=== PATIENT | male | born 1955 | race Caucasian/White ===

== ENCOUNTER 2023-06-25 15:30 | Outpatient (RCR) | payer MEDICARE, OTHER, SELFPAY | END 2023-06-25 23:59 | disposition home or self-care (01) | LOC: CRHB 15:30 | PROVIDERS: ATTENDING PHYSICIAN Internal Medicine Cardiovascular Disease | DX: I25.10 Atherosclerotic heart disease of native coronary artery without angina pectoris (principal); Z95.1 Presence of aortocoronary bypass graft | CPT/HCPCS: G0422; G0423 ==

== ENCOUNTER → 2023-08-28 12:57 | Outpatient (REF) | payer MEDICARE, OTHER, SELFPAY ==
[2023-08-28 14:34] LABS: Microalbumin/creatinine Ratio 98.1 mg/g
[2023-08-28 15:08] LABS: ALT (SGPT) 20 U/L (0-50); AST (SGOT) 20 U/L (17-59); Albumin 4.1 g/dl (3.5-5.0); Alkaline Phosphatase 81 U/L (38-126); Blood Urea Nitrogen 13 mg/dl (9-20); Calcium 9.4 mg/dl (8.4-10.2); Carbon Dioxide 26 mmol/L (22-30); Chloride 102 mmol/L (98-107); Glucose 134 mg/dl (70-99); HDL Cholesterol 47 mg/dl; LDL Cholesterol, Calculated 76 mg/dl; Potassium 4.7 mmol/L (3.5-5.1); Sodium 138 mmol/L (135-145); Total Bilirubin 0.8 mg/dl (0.2-1.3); Total Cholesterol 145 mg/dl (50-199); Total Protein 6.6 g/dl (6.3-8.2); Triglyceride 111 mg/dl (10-149); Very Low Density Lipoprotein 22 mg/dl (0-30); eGFR > 60.00
[2023-08-29 09:25] LABS: Glycohemoglobin (HgbA1c) 7.7 % (4.0-5.6)
== END ==
LOC: REG 12:57
PROVIDERS: ATTENDING PHYSICIAN Internal Medicine
DX: E11.51 Type 2 diabetes mellitus with diabetic peripheral angiopathy without gangrene (principal); E78.2 Mixed hyperlipidemia
CPT/HCPCS: 36415; 80053; 80061; 82043; 82570; 83036

== ENCOUNTER → 2023-10-10 10:05 | Outpatient (REF) | payer MEDICARE, OTHER, SELFPAY | LOC: HWRAD 10:05 | PROVIDERS: ATTENDING PHYSICIAN Nurse Practitioner Family | DX: J06.9 Acute upper respiratory infection, unspecified (principal); R05.1 Acute cough | CPT/HCPCS: 71046 ==

== ENCOUNTER → 2024-08-06 08:47 | Outpatient (REF) | payer MEDICARE, OTHER, SELFPAY ==
[2024-08-06 10:16] LABS: Glycohemoglobin (HgbA1c) 7.1 % (4.0-5.6)
[2024-08-06 11:15] LABS: ALT (SGPT) 24 U/L (0-50); AST (SGOT) 23 U/L (17-59); Albumin 5.1 g/dl (3.5-5.0); Alkaline Phosphatase 82 U/L (38-126); Blood Urea Nitrogen 26 mg/dl (9-20); Calcium 9.6 mg/dl (8.4-10.2); Carbon Dioxide 26 mmol/L (22-30); Chloride 102 mmol/L (98-107); Glucose 124 mg/dl (70-99); HDL Cholesterol 53 mg/dl; LDL Cholesterol, Calculated 53 mg/dl; Potassium 4.9 mmol/L (3.5-5.1); Sodium 139 mmol/L (135-145); Total Bilirubin 1.1 mg/dl (0.2-1.3); Total Cholesterol 127 mg/dl (50-199); Total Protein 7.3 g/dl (6.3-8.2); Triglyceride 107 mg/dl (10-149); Very Low Density Lipoprotein 21 mg/dl (0-30); eGFR > 60.00
[2024-08-06 11:19] LABS: NT-proBNP 380 pg/ml
[2024-08-06 11:43] LABS: PSA, Total - Screen 0.25 ng/ml (0.0-4.0)
[2024-08-06 14:52] LABS: Microalbumin, Random Urine 52.5 mg/dl (0.6-1.7); Microalbumin/creatinine Ratio 240.9 mg/g
== END ==
LOC: REG 08:47
PROVIDERS: ATTENDING PHYSICIAN Internal Medicine Cardiovascular Disease; FAMILY PHYSICIAN Internal Medicine
DX: I25.10 Atherosclerotic heart disease of native coronary artery without angina pectoris (principal); R06.09 Other forms of dyspnea; E78.2 Mixed hyperlipidemia; E11.51 Type 2 diabetes mellitus with diabetic peripheral angiopathy without gangrene; I10 Essential (primary) hypertension; Z12.5 Encounter for screening for malignant neoplasm of prostate
CPT/HCPCS: 36415; 80053; 80061; 82043; 82570; 83036; 83880; G0103

== ENCOUNTER → 2024-08-08 12:17 | Outpatient (REF) | payer MEDICARE, OTHER, SELFPAY | LOC: RCS 12:17 | PROVIDERS: ATTENDING PHYSICIAN Internal Medicine Cardiovascular Disease; FAMILY PHYSICIAN Internal Medicine | DX: I25.10 Atherosclerotic heart disease of native coronary artery without angina pectoris (principal); I11.9 Hypertensive heart disease without heart failure; R06.09 Other forms of dyspnea | CPT/HCPCS: 93306 ==

== ENCOUNTER → 2024-08-27 09:56 | Outpatient (REF) | payer MEDICARE, OTHER, SELFPAY ==
[2024-08-27 13:11] LABS: D-Dimer 0.33 ug/mlFEU (0.00-0.50)
[2024-08-27 13:17] LABS: NT-proBNP 486 pg/ml
== END ==
LOC: HWLAB 09:56
PROVIDERS: ATTENDING PHYSICIAN Internal Medicine Cardiovascular Disease; FAMILY PHYSICIAN Internal Medicine
DX: I10 Essential (primary) hypertension (principal)
CPT/HCPCS: 36415; 83880; 85379

== ENCOUNTER → 2024-09-10 13:39 | Outpatient (REF) | payer MEDICARE, OTHER, SELFPAY | LOC: RCS 13:39 | PROVIDERS: ATTENDING PHYSICIAN Internal Medicine Cardiovascular Disease; FAMILY PHYSICIAN Internal Medicine | DX: Z95.1 Presence of aortocoronary bypass graft (principal); I25.10 Atherosclerotic heart disease of native coronary artery without angina pectoris; Z95.5 Presence of coronary angioplasty implant and graft; I21.29 ST elevation (STEMI) myocardial infarction involving other sites | CPT/HCPCS: 93306; Q9950 ==

== ENCOUNTER → 2025-03-27 13:33 | Outpatient (REF) | payer MEDICARE, OTHER, SELFPAY ==
[2025-03-27 15:23] LABS: ALT (SGPT) 22 U/L (0-50); AST (SGOT) 18 U/L (17-59); Albumin 4.3 g/dl (3.5-5.0); Alkaline Phosphatase 77 U/L (38-126); Blood Urea Nitrogen 18 mg/dl (9-20); Calcium 9.2 mg/dl (8.4-10.2); Carbon Dioxide 25 mmol/L (22-30); Chloride 108 mmol/L (98-107); Glucose 149 mg/dl (70-99); HDL Cholesterol 45 mg/dl; LDL Cholesterol, Calculated 60 mg/dl; Potassium 5.0 mmol/L (3.5-5.1); Sodium 137 mmol/L (135-145); Total Protein 6.7 g/dl (6.3-8.2); Very Low Density Lipoprotein 16 mg/dl (0-30); eGFR > 60.00
[2025-03-27 15:44] LABS: Microalb - Urine Creatinine 276.800 mg/dl
[2025-03-27 16:11] LABS: Microalbumin, Random Urine > 57.0 mg/dl (0.6-1.7)
[2025-03-28 08:54] LABS: Glycohemoglobin (HgbA1c) 7.2 % (4.0-5.6)
== END ==
LOC: HWLAB 13:33
PROVIDERS: ATTENDING PHYSICIAN Internal Medicine
DX: E78.2 Mixed hyperlipidemia (principal); E11.51 Type 2 diabetes mellitus with diabetic peripheral angiopathy without gangrene
CPT/HCPCS: 36415; 80053; 80061; 82043; 82570; 83036

== ENCOUNTER 2025-04-25 16:09 | Day surgery (SDC) | payer MEDICARE, OTHER, SELFPAY ==
[2025-04-25] VITALS (13 sets, daily range): BP systolic 108–170; BP diastolic 63–82; BMI 29.7; BMI 29.2
--- NOTE | 2025-04-25 12:31 | ED.GENMED ---
History of Present Illness
General
Chief Complaint: Breathing Problem
Source: patient
Time Seen by Provider: 04/25/25 12:22
History of Present Illness
History of Present Illness:
69-year-old male presents emergency department with reported dyspnea that started last night. He wondered whether or not it was related to fluid accumulation so he took a dose of Lasix. He reports urinating often throughout the night. Patient
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 While doing this at approximately 9:30 AM he started to feel diaphoretic associated with bilateral 'shoulder blade' pain. He took nitroglycerin x 1 with gradual relief of symptoms.
Then, at around 10:30 AM, the 'sharp stabbing' scapular pain returned associated with a feeling of having a hard time breathing. He took nitroglycerin x 1, and states that he has 'residual' discomfort and continued dyspnea. He denies chest pain,
neck pain, headache, abdominal pain, nausea, vomiting, or other complaints. He states that he has had scapular pain in the past consistent with an angina equivalent.
Past History
Past History
ED Past Medical History: CAD, HTN, Hypercholesterolemia, [place] and Other (L 6mm kidney stone w/ sx intevention and stetning/turp, BPH)
ED Past Surgical History: Cardiac and Urological
Social History
Tobacco: Former smoker
Alcohol: None
Drug: None
Personal:
Living: with family
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
Family History
Family History: Other (n/c)
Phy Exam
Physical Exam
Physical Exam:
GENERAL: Alert , in no apparent distress
EYE: pupils equal and reactive
NECK: Supple, no significant adenopathy.
ENT: o/p clr, mmm.
CARDIAC: Regular rate and rhythm .
LUNGS: Clear breath sounds bilaterally, no acute respiratory distress, no wheezes/rales/rhonchi
ABDOMEN: Soft, without focal tenderness, no r/g, no cvat
NEUROLOGICAL: Alert and oriented, no focal neuro deficits
SKIN: Warm and dry, skin intact.
MUSCULOSKELETAL: No edema, well perfused.
PSYCH: Normal and appropriate interaction.
Scores
Heart Failure Risk
Heart Failure Risk Score: Not Applicable
Course
Orders/Labs/Results
Orders:
Orders
04/25/25 11:57
EKG [Electrocardiogram (*1)] Urgent
Reason for Study: Tachycardia
EKG- Treatment ONCE
04/25/25 12:30
Pulse Ox/cont/shift [RESP] Stat
Quantity: 1
04/25/25 12:31
Cardiac Monitoring- Treatment ONCE
Aspirin 325 mg PO NOW STA
Nitroglycerin Sublingual [Nitrostat (Sublingual)] 0.4 mg SL [id number] PRN
CR Chest - 2 Views Urgent
Comment:
Reason For Exam: sob, scapular pain
04/25/25 12:33
Complete Blood Count/No Diff Urgent
Comprehensive Metabolic Panel Urgent
NT-proBNP Urgent
Troponin I Urgent
04/25/25 13:52
Add On- LAB Urgent
Tests Added?: d-dimer
04/25/25 14:11
D-Dimer Routine
04/25/25 14:12
EKG [Electrocardiogram (*1)] Urgent
Reason for Study: Chest Pain
EKG- Treatment ONCE
04/25/25 14:23
Furosemide [Lasix] 40 mg IV NOW STA
04/25/25 Dinner
1800 calorie (15 carb) Diabetic
At Your Request: Full Participation
04/25/25 15:37
CARDIOLOGY CONSULT Routine
Consulting Provider: Alfredo Chance
Was physician already notified: Yes
Reason for consult: chest pain
04/25/25 15:38
Admit/Transfer Patient As Directed
Co-Sign Provider:
Level of Care: Observation services
Assign to:: Telemetry
Physician / Group: josh locke
Diagnosis: cp cpncern acs vs chf
Reason for Telemetry: Chest Pain syndromes
Date to Stop Telemetry: 04/27/25
Time to Stop Telemetry: 11:00
Code Status As Directed
Resuscitation Status: Full Code
04/25/25 15:41
PRN Pain Medication Management As Directed
May give lesser potent ordered pain med per pt: Yes
preference::
Protocol:: Medication orders for pain may be administered in a
manner that supports deferring to patient preference
when the pt is:
- Requesting an ordered lesser potent pain medication.
Least to most potent pain medications are defined
as: acetaminophen < NSAID < tramadol < opioids
(morphine, oxycodone, hydromorphone).
- Requesting a lesser dose of the same medication IF
ORDERED.
- Requesting a less intrusive route of administration
if both routes are prescribed by the provider (PO <
IV).
04/25/25 16:11
Troponin I Urgent
04/25/25 16:51
Acetaminophen [Tylenol] 650 mg PO Q4HPRN PRN
Dextrose 50%-Water [Dextrose 50% Syringe] 12.5 grams IV [id number] PRN
Glucagon [GlucaGen] 1 mg IM PRN PRN
Insulin Aspart Corrective Low [Novolog Flexpen-Low Resistance] See Protocol SC AC
Nitroglycerin Sublingual [Nitrostat (Sublingual)] 0.4 mg SL [id number] PRN
04/25/25 16:51
Activity As Directed
Activity Level: As Tolerated
Bedside Glucose Monitoring As Directed
Frequency: AC&HS
Additional Instructions:: Change to q6h if pt on TPN, tube feeding or not eating
Intake/ Output As Directed
Frequency: Per unit guidelines
Vital Signs As Directed
Frequency: Per unit guidelines
Weight As Directed
Frequency: Daily
Pt Eval And Treat Routine
Activity Level: As Tolerated
DX Deep Vein Thrombosis Video Routine
04/25/25 20:00
EKG [Electrocardiogram (*1)] Urgent
Reason for Study: Chest Pain
Carvedilol [Coreg] 3.125 mg PO BID
Heparin 5,000 units SC Q12
04/25/25 22:05
Troponin I Urgent
04/26/25 08:00
Amlodipine [Norvasc] 5 mg PO DAILY
Aspirin Chewable [Low Strength Aspirin] 81 mg PO DAILY
Atorvastatin [Lipitor] 40 mg PO Daily
Clopidogrel Bisulfate [Plavix] 75 mg PO DAILY
Escitalopram Oxalate [Lexapro] 10 mg PO DAILY
Ezetimibe [Zetia] 10 mg PO DAILY
Glimepiride [Amaryl] 3 mg PO DAILY
Tamsulosin [Flomax] 0.4 mg PO DAILY
04/26/25 08:12
Cardiovascular Evaluation IN AM
Complete Blood Count/With Diff IN AM
Comprehensive Metabolic Panel IN AM
04/27/25 04:59
Complete Blood Count/With Diff IN AM
04/27/25 11:00
DC Protocol for Telemetry ONCE
Abnormal Lab Results
04/25/25 04/25/25
12:33 14:11
RBC 4.34 L 10^6/uL
(4.70-6.10)
MCH 31.1 H pg
(27.0-31.0)
MPV 10.7 H fL
(7.4-10.4)
D-Dimer 0.59 H ug/mlFEU
(0.00-0.50)
Potassium 5.6 H mmol/L
(3.5-5.1)
BUN 29 H mg/dl
(9-20)
Glucose 230 H mg/dl
(70-99)
04/25/25 12:33
04/25/25 12:33
Vital Signs
Initial and Last Documented VS:
Initial Vital Signs
Temp Pulse Resp BP Pulse Ox
97.6 F 87 20 135/66 99
04/25/25 12:01 04/25/25 12:01 04/25/25 12:01 04/25/25 12:01 04/25/25 12:01
Last Documented Vital Signs
Temp Pulse Resp BP Pulse Ox
98.1 F 74 18 124/56 95
04/27/25 06:59 04/27/25 08:55 04/27/25 06:59 04/27/25 08:55 04/27/25 06:59
*Pulse Oximetry
SaO2: 100
Oxygen Mode of Delivery: Room air
Patient hypoxic: no
*Critical Care Note
Total Time (30-74mins, 75-104mins- exclusive of procedures): Not Applicable
Update Note
Update Note:
Patient presents to the Emergency Department with scapular pain and dyspnea
Number and Complexity of Problems Addressed at the Encounter
� Chronic conditions affecting care:
� Acute Exacerbation and/or Progression of Chronic Illness:
� Differential Diagnosis includes: But not limited to ACS, STEMI, heart failure, muscular pain, etc. etc.
Amount and/or Complexity of Data to be Reviewed and Analyzed
� I performed an independent evaluation of and my interpretation is:
EKG: Read by me, normal sinus rhythm with PAC, no acute ischemia noted
CT:
Xrays:cxr nad
Laboratory Studies:troponin unremarkable, bnp sl elevated compared to normal, sl hyperK
Other:
� Review of other/old records reveals: January 2023 patient received CABG x 3
� Clinical information was obtained by an independent historian:
� Prescriptions/Medications Considered but not given:
� Further testing considered but not performed:
Risk of Complications and/or Morbidity or Mortality of Patient Management
� Social determinants of health affecting care:
� Discussion with other providers (PCP, Hospitalists, Consultants, etc):
� Escalation of care including admission/observation vs risk of discharge considered: Patient will be monitored closely, no acute ischemic changes noted on ECG, minimal scapular pain at this time, will be given aspirin and nitro
with close attention to vitals and symptoms. Pain is not 'ripping' or 'tearing' in quality, not abrupt in onset, not radiating through to the back making dissection far less likely.
1:09 PM status post nitro x 1 here, pain fully resolved. Pulse ox normal on room air, awaiting testing results.
222pm Pt had an episode of cp...ecg done at that time, unremkarable for acute ischemic changes. strongly doubt dissection, not hypertensive, etc. PE less likely, D dimer pending. Suspect mild heart failure, will rx lasix now, admit for obs,
continued cards eval. D/w hospitliast.
Age adjusted D dimer unremarkable
ED Attending Note
-
Portions of this chart may have been created with voice recognition software.� Occasional wrong word or��sound alike� substitutions may have occurred due to the inherent limitations of voice recognition software.
Discharge Plan
Departure
Patient Disposition: Admit
Date of Disposition: 04/25/25
Time of Disposition: 14:23
Admit to: Telemetry
Presentation/result/management discussed w/ accepting MD/DO: Hospitalist
Condition: Fair
Discharge Problem:
Dyspnea
Interventions
Interventions:
*General Assessment Last Done: 04/25/25 12:01
*Neglect/Abuse Screening Last Done: 04/25/25 12:01
*ED- Fall Risk Assessment Last Done: 04/25/25 12:01
*ED Influenza Vaccine History Last Done: 04/25/25 12:01
*Nursing Disposition Last Done: 04/25/25 16:23
ED- Cardiac Assessment Last Done: 04/25/25 12:28
ED- Pulmonary Assessment Last Done: 04/25/25 12:28
Discharge Date and Time
Discharge Date/Time: 04/25/25 16:46
[2025-04-25] MEDS: NITROSTAT (SUBLINGUAL) 0.4 MG SL (12:36)
[2025-04-25] MEDS: ASPIRIN 325 MG PO (12:36)
[2025-04-25 12:39] LABS: Hematocrit 39.4 % (39.0-52.0); Hemoglobin 13.5 g/dL (13.0-18.0); Mean Corp Hgb Conc. 34.3 g/dL (33.0-37.0); Mean Corpuscular Volume 90.8 fL (80.0-94.0); Platelet Count 244 10^3/uL (130-400); Red Cell Dist. Width 12.6 % (11.5-14.5)
[2025-04-25 12:55] LABS: ALT (SGPT) 24 U/L (0-50); AST (SGOT) 21 U/L (17-59); Albumin 4.5 g/dl (3.5-5.0); Alkaline Phosphatase 65 U/L (38-126); Blood Urea Nitrogen 29 mg/dl (9-20); Calcium 9.1 mg/dl (8.4-10.2); Carbon Dioxide 23 mmol/L (22-30); Chloride 101 mmol/L (98-107); Estimated Creatinine Clearance 61 ml/min; Glucose 230 mg/dl (70-99); Potassium 5.6 mmol/L (3.5-5.1); Sodium 136 mmol/L (135-145); Total Protein 6.8 g/dl (6.3-8.2); eGFR 59.47
--- NOTE | 2025-04-25 13:00 | EDRN ---
potassium elevated, Dr. Duran notified
[2025-04-25 13:06] LABS: Troponin I < 0.012 ng/ml
--- NOTE | 2025-04-25 14:12 | EDRN ---
the pts approached this RN at the nurses station and stated that he had left sided chest pain, this RN notified Dr. Duran and a second EKG was ordered
--- NOTE | 2025-04-25 14:22 | W.PN.UPDATE ---
Update Note
Progress Note Update
This note serves as an addendum to the H&P by casino cashier ZULMA�
Imani Nery
�This note serves as an addendum to the H&P by casino cashier ZULMA�Imani Gabriel
HPI
69M HX CAD( stents to Circ and LAD) on DAPL, 3V CABR ( 2022, 2018, 2008) LVEF 45-50 ( ) seen at ER:
- pw dyspnea that started last night- took a dose of Lasix presumed fluid retention
- reports urinating often throughout the night.
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
- associated with bilateral 'shoulder blade' pain- took NTG x 1 with gradual relief of symptoms.
- Then, around 10:30 AM, recurrence of 'sharp stabbing' scapular pain with SoB
- He took nitroglycerin x 1, and states that he has 'residual' discomfort and continued dyspnea.
- He states that he has had scapular pain in the past consistent with an angina equivalent.
ROS
He denies chest pain, neck pain, headache, abdominal pain, nausea, vomiting, or other complaints.
PHX: CAD, HTN, Hypercholesterolemia, [place] and Other (L 6mm kidney stone w/ sx intervention and stenting/turp, BPH)
Relevant VS
Temp Pulse Resp BP Pulse Ox
98.6 F 79 19 118/63 100
04/25/25 12:28 04/25/25 12:28 04/25/25 12:28 04/25/25 12:41 04/25/25 12:35
PE
Gen: NAD, Overweight with central obesity
HEENT: anicteric
Neck: supple
Lungs: CTA
Cor: RRR S1 S2
Abdomen:�centrl obesity , soft NT
[employer] NETWORK ARCHITECT: NFND
MS: no edema
Psych: Nl mood and affect
Relevant Data
03/27/25 04/25/25 04/25/25
13:42 12:33 14:11
WBC 7.6
Hgb 13.5
Plt Count 244
D-Dimer Pending
Potassium 5.6 H
BUN 29 H
Creatinine 0.9 1.3
eGFR > 60.00 59.47
Glucose 230 H
Troponin I < 0.012
Tkp-G-Reixuvvltjd Pept 1090
CXR; NAD
EKG @ 1157
SINUS RHYTHM WITH PREMATURE ATRIAL COMPLEXES WITH Aberrant conduction
LEFT AXIS DEVIATION
ABNORMAL ECG
WHEN COMPARED WITH ECG OF 31-Jan-2023 08:08,
SINUS RHYTHM HAS REPLACED ATRIAL FLUTTER
VENT. RATE HAS DECREASED by 51 bpm
NONSPECIFIC T WAVE ABNORMALITY NOW EVIDENT IN LATERAL LEADS
EKG @1412
SINUS RHYTHM WITH OCCASIONAL PREMATURE VENTRICULAR COMPLEXES
LEFT AXIS DEVIATION
NONSPECIFIC T WAVE ABNORMALITY
ABNORMAL ECG
WHEN COMPARED WITH ECG OF 25-Apr-2025 12:00,
PREMATURE VENTRICULAR COMPLEXES ARE NOW PRESENT
Aberrant conduction IS NO LONGER PRESENT
09/10/24 TTE
Normal left ventricular chamber size.
Mildly reduced left ventricular systolic function. LVEF 45-50%
Hypokinesis of the inferior wall.
Abnormal (paradoxical) septal motion consistent with postoperative status.
Normal right ventricular size and function.
Compared to prior study dated 08/08/2024 which was directly reviewed, there is
no significant change within limits of the study quality
ASSESSMENT & PLAN
Pending Rx reconciliation
Exertional scapular pain presumed angina equivalent relieved by 2 SL NTG - associated SoB
HX CAD s/p 3 mm Xience prox Circumflex 05/27/19
HX CAD s/p Xience ALEXANDRE to prox LAD and Vision BMS to RCA 12/28/08
HX [place]
Hyperlipidemia
- unremarkable EKG x2 for acute ischemia
- NEG CXR, POx 100 on RA
- Eval for ACS
- c/w GEOLOGICAL TECHNICIAN DAPL
- c/w GEOLOGICAL TECHNICIAN Atorvastatin and Ezetimibe
- NEG TPNI. NOS T wave abnormality
- Trend TPNI
- [facility] card consult
VIKKI - Cardiorenal syndrome vs volume contraction ( He did not take Frusemide for 4- 5days before yesteray )
Associated hyperkalemia
- Frusemide - patient took 40 mg PO last night and received IV lasixc 40 at ER
- Hold further Lasix
- Hold GEOLOGICAL TECHNICIAN KCL 20 daily
- Hold Metformin
- FU BMP around 10 pm
Essential HTN
Known HX fatigue with BID Carvedilol
- c/w GEOLOGICAL TECHNICIAN Carvedilol daily
DMT2
- Hold Metformin due to VIKKI
- c/w Glimepiride
- add ISS low
HX LLEx DVT
HX hematuria
HX urinary retention.
HX Pyuria/urinary tract infection
HX Status post left ureteral stone manipulation/JJ stent/removed 09/13, status post TURP.
PTSD
DVT Px: SCD
Full code
OBS TLM
[2025-04-25 14:29] LABS: D-Dimer 0.59 ug/mlFEU (0.00-0.50)
--- NOTE | 2025-04-25 14:38 | HPS.HSE ---
Family Physician
-
Family Physician: Andi Nolan
Chief Complaint
-
Dyspnea, bilateral shoulder blade pain
History of Present Illness
69-year-old male complaining of dyspnea with abdominal bloating that started last night he was concerned about fluid overload so took his Lasix 40 mg and was urinating throughout the night. He reports he had stopped it over the past 2 weeks due to
going to work and watching his grandkids and did not want to have to keep going to the bathroom. He reports today at 9:30 AM he was unloading trucks and pallets at work started to feel diaphoretic with bilateral shoulder blade pain he took
nitroglycerin with gradual relief of symptoms however they returned approximately 1 hour later with shortness of breath he took additional nitroglycerin sublingual but had residual discomfort and dyspnea. He states he typically gets posterior
shoulder blade pain with prior history of MIs. He did develop 1 episode of chest pain in the ER was given nitro and aspirin along with IV Lasix. He currently is chest pain-free the patient denies fever, chills, headache, sore throat, palpitations,
abdominal pain, nausea, vomiting, diarrhea, urinary symptoms.
Patient's past medical history of CAD/CABG x 5 vessel, ischemic cardiomyopathy 45 to 50% 02/04/2023, postop A-fib after CABG 02/01/2023, HTN, DM 2, HLD, depression, BPH status post TURP 2017, renal calculi, former smoker, history of DVT 2019 provoked
due to prolonged hospital stay post urological procedure, abdominal diastasis recti
Medical History
Past Medical History
Past Medical History: Reports Other
Additional Past Medical History:
CHF Dx July 2024
CAD/CABG x 5 vessel
ischemic cardiomyopathy 45 to 50% 02/04/2023
postop A-fib after CABG 02/01/2023
HTN
DM 2
HLD,
depression
BPH status post TURP 2017
renal calculi
former smoker
history of DVT 2019 provoked due to prolonged hospital stay post urological procedure
abdominal diastasis recti
Past Surgical History: Reports Other
Additional Past Surgical History:
01/26/2023 s/p Coronary artery bypass grafting x 3 (In situ PALOMO to LAD, Ao to RSVG to first diagonal, Ao to RSVG to OM1) on 01/26/[address] Peres, pod #6
S/p AMI 2009- s/p ALEXANDRE to LAD and BMS to RCA 2008, s/p ALEXANDRE to LCX 2019
Social History
Tobacco: Former Smoker
Alcohol: None
Drug: None
Personal:
Living: With Family
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
Family History
Family History: Not pertinent
Allergies / Home Medications
Allergies reflects when Allergies were last updated in [employer].
Home Medications with original date entered in [employer]
Allergy/Medication List:
Allergies
Allergy/AdvReac Type Severity Reaction Status Date / Time
Iodinated Contrast Media Allergy Swelling Verified 04/25/25 12:06
(Iodinated Contrast- Oral
and IV Dye)
iodine Allergy rash,swelli Verified 04/25/25 12:06
ng
lisinopril Allergy numbness Verified 04/25/25 12:06
and
tingling
valsartan (From Diovan) Allergy numbness Verified 04/25/25 12:06
and
tingling
Home Medications
tamsulosin 0.4 mg capsule 0.4 mg PO DAILY Urinary issue 03/09/21
aspirin 81 mg chewable tablet 81 mg PO DAILY Blood clot prevention/tx 03/08/22
atorvastatin 40 mg tablet 40 mg PO Daily High cholesterol 03/08/22
escitalopram oxalate 10 mg tablet 10 mg PO DAILY Depression 03/08/22
metformin 1,000 mg tablet 1,000 mg PO BID Diabetes 03/08/22
clopidogrel 75 mg tablet 75 mg PO DAILY Blood Clot Prevention/Tx 01/11/23
blood sugar diagnostic (Contour Next Test Strips) #100 ea 01/31/23
lancets 21 gauge (Color Lancets) #100 ea 01/31/23
acetaminophen 325 mg tablet 650 mg (2 x 325 mg) PO Q6HPRN PRN mild pain,headache,temp >101F #0 tabs 02/01/23
amlodipine 5 mg tablet 5 mg PO DAILY 04/25/25
carvedilol 3.125 mg tablet 3.125 mg PO BID 04/25/25
ezetimibe 10 mg tablet 10 mg PO DAILY 04/25/25
furosemide 40 mg tablet 40 mg PO DAILY 04/25/25
glimepiride 3 mg tablet 3 mg PO DAILY 04/25/25
potassium chloride 20 mEq tablet,extended release 20 meq PO DAILY 04/25/25
Review of Systems
-
History Source: Patient and Family ( at bedside)
A 12 point ROS was completed and negative except as noted: Yes
Constitutional: Denies Fever or Fatigue
EENT: Denies Sore Throat or Runny Nose
Respiratory: Reports Trouble Breathing; Denies Cough
Cardiac: Reports Chest Pain (Bilateral posterior shoulder blades) and Diaphoresis; Denies Palpitations or Syncope
Abdomen/GI: Denies Abdominal Pain, Nausea, Vomiting, Diarrhea, Constipated or Bloody Stools
: Denies Dysuria, Frequency, Flank Pain, Incontinence, Difficulty Voiding or Urgency
Musculoskeletal: Denies Joint Pain or Edema
Skin: Denies Itching or Rash
Neurological: Denies Dizzy, Headache or Weakness
Endocrine: Reports No Symptoms
Hematologic/Lymphatic: Reports No Symptoms
Psych: Reports Calm
Physical Exam
Vital Signs
Vital Signs
Temp Pulse Resp BP Pulse Ox
98.6 F 79 19 118/63 100
04/25/25 12:28 04/25/25 12:28 04/25/25 12:28 04/25/25 12:41 04/25/25 12:35
Physical Exam
General: Comfortable and Conversant; No Pain, Fever or Chills
HEENT: NormoCephalic, Anicteric, PERRLA, [place] Conjunctivae and No Ptosis
Respiratory: Clear; No Wheezes, Rales or Rhonchi
Cardiac: S1/S2 and Regular Rhythm; No Murmur, Rub, Gallop or Peripheral Edema
GI: Soft, Non Tender, Non Distended, Normal Bowel Sounds, No Hepatosplenomegaly and Other (Chronic diastasis recti)
Rectal: Deferred by Provider
Genito-urinary: Deferred by me
Musculoskeletal: No Clubbing, No Cyanosis and No Edema
Skin: Warm and Dry; No Rash
Neuro: AO x 3, No Motor Deficits, Nonfocal/grossly intact, Cranial Nerves Intact and No Sensory Deficits; No Slurred Speech, Facial Droop, Tremors or Sedated
Psych: Calm
Laboratory Results
-
04/25/25 12:33
04/25/25 12:33
Laboratory Results
Total Bilirubin 0.8 mg/dl (0.2-1.3) 04/25/25 12:33
AST 21 U/L (17-59) 04/25/25 12:33
ALT 24 U/L (0-50) 04/25/25 12:33
Alkaline Phosphatase 65 U/L (38-126) 04/25/25 12:33
Troponin I < 0.012 ng/ml 04/25/25 12:33
Data Reviewed
-
Diagnostic Radiology: Report Reviewed by me
Lab Data: Labs Reviewed by me
Impression/Plan
-
Impression/plan:
Observation telemetry
#Chest pain concern for ACS
#CAD/CABG x 5 vessel
#Ischemic cardiomyopathy 45-50% 02/04/2023
# 01/26/2023 s/p Coronary artery bypass grafting x 3 (In situ PALOMO to LAD, Ao to RSVG to first diagonal, Ao to RSVG to OM1) on 01/26/[address] Peres, pod #6
#S/p AMI 2009- s/p ALEXNADRE to LAD and BMS to RCA 2008, s/p ALEXANDRE to LCX 2018
Troponin<0.012
-Check D-dimer
-Patient given aspirin 325 mg in ER, nitro, Lasix 40 mg IV
- Continue aspirin, Plavix, statin, Zetia
- Consult [facility] cardiology
- Nitro sublingual as needed chest pain
EKG: Sinus rhythm with occasional PVCs 70 bpm, QTc B457 MS
Flattening of T waves lateral leads
2D echo 09/10/2024: EF 45-50%, mild reduced LVSF, hypokinesis of the inferior wall, abnormal septal motion consistent
with postop status CABG normal RVS and function
CXR: No acute cardiopulmonary process
#History of heart failure Dx July 2024
Patient reports tends to develop abdominal bloating
Was started on Lasix 40 mg daily has not taken in the past 2 weeks until this morning
Last known weight 234 pounds February 2025
currently 224 LBS prior baseline 220 LBS dry weight
- Was given IV Lasix 40 mg once in ER hold on current further Lasix
- Check BN P at 10 PM
#VIKKI
Creat 1.3 prior 0.9 03/27/2025
Bun 29
Follow BMP
#Acute hyperkalemia likely secondary to KCl Home meds
Potassium 5.6
-IV Lasix given in ER
#History of postop A-fib after CABG 02/01/2023
Was on amiodarone no longer on
#HTN�benign
BP 118/63
-Continue amlodipine 5 mg daily, carvedilol 3.125 mg daily with hold parameters
#DM2 with hyperglycemia
Blood sugar 230, check HgbA1c
Accu-Cheks with SSI low
-Hold metformin at 1000 mg twice daily
- Continue glimepiride 3 mg daily
#HLD
Check lipid profile
-continue ezetimibe 10 mg daily, atorvastatin 40 mg daily
#Depression
-Continue Lexapro 10 mg daily
#BPH
#Status post TURP [address] Aiken
#History of renal calculi status post removal/stent
continue tamsulosin 0.4 mg daily
#Former smoker
History of DVT provoked 2018 due to prolonged hospital stay
Was treated temporarily with Lovenox
DVT prophylaxis
Subcu heparin
Full code
[2025-04-25] MEDS: LASIX 40 MG IV (16:06)
--- NOTE | 2025-04-25 16:21 | EDRN ---
this RN called the receiving unit and notified them that paper report was going to be tubed up
[2025-04-25 16:41] LABS: Troponin I < 0.012 ng/ml
[2025-04-25 17:18] LABS: Glucose - Point of Care 119 mg/dl (70-99)
[2025-04-25] MEDS: NOVOLOG FLEXPEN-LOW RESISTANCE SC (17:27)
[2025-04-25] MEDS: COREG 3.125 MG PO (20:06)
[2025-04-25] MEDS: HEPARIN 5000 UNITS SC (20:07)
[2025-04-25 21:19] LABS: Glucose - Point of Care 199 mg/dl (70-99)
[2025-04-25] MEDS: FLOMAX 0.4 MG PO (22:09)
[2025-04-25] MEDS: LIPITOR 40 MG PO (22:09)
[2025-04-25] MEDS: NORVASC 5 MG PO (22:10)
[2025-04-25 22:26] LABS: Blood Urea Nitrogen 34 mg/dl (9-20); Calcium 9.4 mg/dl (8.4-10.2); Carbon Dioxide 25 mmol/L (22-30); Chloride 102 mmol/L (98-107); Estimated Creatinine Clearance 79 ml/min; Glucose 184 mg/dl (70-99); Potassium 4.4 mmol/L (3.5-5.1); Sodium 137 mmol/L (135-145); eGFR > 60.00
[2025-04-25 22:38] LABS: Troponin I < 0.012 ng/ml
[2025-04-26] VITALS (9 sets, daily range): BP systolic 101–140; BP diastolic 63–93; PULSE 89; O2SAT 98; BMI 28.4
--- NOTE | 2025-04-26 06:56 | W.PN.HOSP.TC ---
Today's Communication/Plan
-
Continue to monitor in IVU
NPO after midnight for cardiac cath tomorrow
Assessment / Plan
Assessment / Plan
Physical Exam
General: Not in acute distress
HEENT: Normocephalic
Respiratory: Clear to Auscultation Bilaterally
Cardiac: S1/S2 and Regular Rhythm
GI: Soft, Non Tender, Non Distended, Normal Bowel Sounds
Musculoskeletal: No Cyanosis and No Edema
Skin: Warm and Dry
Neuro: AAO x 3, No Motor Deficits, Nonfocal/grossly intact, Cranial Nerves Intact and No Sensory Deficits
Psych: Calm
Assessment/Plan
69 year-old male with past medical history of CAD/CABG x 5 vessel and status post stents, ischemic cardiomyopathy 45 to 50% 02/04/2023, postop A-fib after CABG 02/01/2023, HTN, DM 2, HLD, depression, BPH status post TURP 2017, renal calculi, former
smoker, history of DVT 2019 provoked due to prolonged hospital stay post urological procedure and abdominal diastasis recti, presented complaining of dyspnea with abdominal bloating that started on the evening of 04/24/25, he was concerned about
fluid overload so he took his Lasix 40 mg and was urinating throughout the night. He reported he had stopped the Lasix over the past 2 weeks, prior to presentation, due to going to work and watching his grandchildren, and he did not want to have to
keep going to the bathroom. He reported that on 04/25/25 around 9:30 AM he was unloading trucks and pallets at work, and started to feel diaphoretic with bilateral shoulder blade pain (similar to pain with his prior MIs); he took nitroglycerin with
gradual relief of symptoms however they returned approximately 1 hour later with shortness of breath he took additional nitroglycerin sublingual but had residual discomfort and dyspnea. He stated he typically gets posterior shoulder blade pain with
prior history of MIs. He did develop 1 episode of chest pain in the ER was given nitro and aspirin along with IV Lasix. His pain resolved soon after. At the time of admission, he denied fever, chills, headache, sore throat, palpitations, abdominal
pain, nausea, vomiting, diarrhea or urinary symptoms.
#Diaphoresis and Bilateral Shoulder Blade pain (similar to symptoms of prior NV), concern for ACS
#History of NV
#History of CAD status post stents/CABG x 5 vessel
#Ischemic cardiomyopathy 45-50% 02/04/2023
#01/26/2023 s/p Coronary artery bypass grafting x 3 (In situ PALOMO to LAD, Ao to RSVG to first diagonal, Ao to RSVG to OM1) on 01/26/[address] Peres, pod #6
#S/p AMI 2008- s/p ALEXANDRE to LAD and BMS to RCA 2008, s/p ALEXANDRE to LCX 2018
-Patient given aspirin 325 mg in ER, nitro, Lasix 40 mg IV
-As of 04/26/25, patient remains without shoulder pain or diaphoresis
-D-dimer --> on 04/26/25, I discussed case with cardio/Dr. Chance, low suspicion for PE or aortic dissection, his shoulder pains have also resolved, he is comfortable right, radial and pedal pulses are good and equal bilaterally
-If CT with contrast needed later on, can do IV Solum-Medrol 125 mg plus Benadryl prior to CT Contrast study (patient has allergies to CT Contrast dye)
-Troponins are negative so far, and EKG with some changes compared to previous
-Continue Aspirin, Plavix, Atorvastatin 40 mg, and Zetia
-Consulted [facility] cardiology, appreciate their evaluation and recommendations: NPO after midnight for cardiac cath tomorrow (patient will get IV steroids prior to cath given his allergies to contrast)
-Nitro sublingual as needed chest pain
#History of HFmrEF
-Patient reports tends to develop abdominal bloating with acute CHF exacerbations
-Was started on Lasix 40 mg daily outpatient, but had not taken in the 2 weeks (prior to presentation), until the morning of 04/25/25
-proBNP was 1090, which is specific for acute CHF at his age
-Was given IV Lasix 40 mg once in ER, continue additional Lasix as per cardiology -- weight went down and creatinine improved after ER IV Lasix dose
#VIKKI, concern for Cardiorenal Syndrome
-Creatinine 1.3---->improved to 1.0 after Lasix given in the ER (prior Creatinine was 0.9 03/27/2025
-Follow BMP
#Hyperkalemia
-Resolved
-Holding outpatient potassium
#History of postop A-fib after CABG 02/01/2023
-Was on Amiodarone but no longer on it
#Hypertension
-Continue Amlodipine 5 mg daily
-Continue Carvedilol 3.125 mg BID -- reported history of fatigue related to beta annie?
#Type 2 Diabetes Mellitus
-Check HbA1c
-As of right now, glucose values seem acceptable mainly within the 140 to 180 range
-Accu-Cheks with SSI low
-Hold metformin at 1000 mg twice daily
-Hold Glimepiride 3 mg daily
#Hyperlipidemia
-Lipid profile this admission showed LDL 57, which is good
-Continue Ezetimibe 10 mg daily
-Continue Atorvastatin 40 mg daily
#Depression
-Continue Lexapro 10 mg daily
#PTSD
#BPH
#Status post TURP [address] Aiken
#History of renal calculi status post removal/stent
#History of Hematuria
#History of Urinary Retention
#History of Pyuria/Urinary Tract Infection
-Continue tamsulosin 0.4 mg daily
-Monitor for any urinary retention
#Former smoker
#History of DVT provoked 2019 due to prolonged hospital stay
-At that time, the DVT was treated temporarily with Lovenox
DVT Prophylaxis: subq Heparin
Code Status: Full code
Anticipated Discharge: 24 - 48 hours
Subjective/Interval History
-
Date of Service: April 26, 2025
Patient was seen and examined. He reported that his chest pain has resolved, he also denied shortness of breath or any other new symptoms or complaints.
Objective Data
-
Labs:
Laboratory Results
04/25/25 04/26/25
22:05 06:00
WBC Pending
Hgb Pending
Hct Pending
Plt Count Pending
Sodium 137 Pending
Potassium 4.4 Pending
Chloride 102 Pending
Carbon Dioxide 25 Pending
BUN 34 H Pending
Creatinine 1.0 Pending
Glucose 184 H Pending
Calcium 9.4 Pending
Total Bilirubin Pending
AST Pending
ALT Pending
Alkaline Phosphatase Pending
Vital Signs:
Vital Signs
Temp Pulse Resp BP Pulse Ox
97.7 F 74 18 119/63 96
04/26/25 03:14 04/26/25 03:14 04/26/25 03:14 04/26/25 03:14 04/26/25 03:14
I&O
04/24/25 04/25/25 04/26/25
06:59 06:59 06:59
Intake Total 120 / 120
Output Total 400 / 400
Balance -280 / -280
[2025-04-26 08:02] LABS: Glucose - Point of Care 164 mg/dl (70-99)
[2025-04-26] MEDS: NOVOLOG FLEXPEN-LOW RESISTANCE 1 UNITS SC (08:24)
[2025-04-26] MEDS: AMARYL 3 MG PO (08:25)
[2025-04-26] MEDS: HEPARIN 5000 UNITS SC ×2 (08:26→19:14)
[2025-04-26] MEDS: LEXAPRO 10 MG PO (08:26)
[2025-04-26] MEDS: LOW STRENGTH ASPIRIN 81 MG PO (08:26)
[2025-04-26] MEDS: PLAVIX 75 MG PO (08:26)
[2025-04-26] MEDS: ZETIA 10 MG PO (08:26)
[2025-04-26] MEDS: COREG 3.125 MG PO ×2 (08:26→19:13)
[2025-04-26 09:26] LABS: Hematocrit 41.0 % (39.0-52.0); Hemoglobin 14.2 g/dL (13.0-18.0); Mean Corp Hgb Conc. 34.6 g/dL (33.0-37.0); Mean Corpuscular Volume 88.2 fL (80.0-94.0); Nucleated Red Blood Cells % 0 % (-); Platelet Count 253 10^3/uL (130-400); Red Cell Dist. Width 12.7 % (11.5-14.5)
[2025-04-26 09:44] LABS: ALT (SGPT) 25 U/L (0-50); AST (SGOT) 20 U/L (17-59); Albumin 4.5 g/dl (3.5-5.0); Alkaline Phosphatase 73 U/L (38-126); Blood Urea Nitrogen 29 mg/dl (9-20); Calcium 9.3 mg/dl (8.4-10.2); Carbon Dioxide 31 mmol/L (22-30); Chloride 100 mmol/L (98-107); Estimated Creatinine Clearance 79 ml/min; Glucose 166 mg/dl (70-99); HDL Cholesterol 47 mg/dl; LDL Cholesterol, Calculated 57 mg/dl; Sodium 139 mmol/L (135-145); Total Protein 6.9 g/dl (6.3-8.2); Very Low Density Lipoprotein 14 mg/dl (0-30); eGFR > 60.00
[2025-04-26 09:48] LABS: Potassium 4.6 mmol/L (3.5-5.1)
--- NOTE | 2025-04-26 10:38 | CON.CAR ---
Consultation
Consultation Request
Date/Time Consultation Requested: April 26, 2025
Date/Time Consultation Performed: April 26, 2025
Requesting Provider: Dr. Grover
Performing Provider: Dr Chance
Reason for Consultation: Chest pain
Medical History
-
Chief Complaint: Chest pain
History of Present Illness:
Rakesh has a history of CABG x 3 with PALOMO to LAD, SVG to first diagonal, SVG to OM1 January 2023, CAD with previous PCI to LAD RCA December 2008, non-STEMI status post PCI left circumflex May 2019, diabetes, hypertension, hyperlipidemia,
postoperative atrial fibrillation after CABG who presents with episodes of chest discomfort bilateral shoulder pain and diaphoresis. He admits to a 2-week period of a very hectic schedule. 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
several hours at a time. He was then going to watch his toddler age grandchildren all day and then taking them to their activities at night. Prior to admission he was unloading a truck and became very diaphoretic with bilateral shoulder pain that
was reminiscent of his prior MA. He took nitroglycerin with relief. Symptoms recurred with shortness of breath and he took additional nitroglycerin but had residual chest discomfort and came to the emergency room for evaluation. He also admits to
not taking Lasix over the last 2 weeks because he has been so busy and could not afford to have frequency of urination. He did take 1 dose of Lasix within about 24 hours prior to coming to the emergency room. In the ER he was given nitro and
aspirin and IV Lasix.
He was last seen by Dr. Jacobson July 2024 following an episode of dyspnea on exertion.
Past medical history:
CABG x 3 with PALOMO to LAD, SVG to first diagonal, SVG to OM1 January 2023
CAD
s/p MA and Xience ALEXANDRE to prox LAD and Vision BMS to RCA 12/28/08
s/p NSTEMI, peak Troponin 36, s/p 3 mm Xience prox Circumflex 05/27/19
Postoperative atrial fibrillation after CABG
HTN
DM 2
Hyperlipidemia
h/o DVT
Renal calculi
Past Medical History
Past Medical History: Other (in HPI)
Past Surgical History: Cardiac (s/p PCI and CABG and MA) and Urological (s/p cystoscopy at [facility] 02/02/22)
Social History
Tobacco: Non-Smoker
Alcohol: None
Drug: None
Personal:
Living: With Family
Employment: Retired (But still works unloading trucks)
Family History
Family History: Diabetes
Allergies / Home Medications
Allergy/AdvReac Type Severity Reaction Status Date / Time
Iodinated Contrast Media Allergy Swelling Verified 04/25/25 12:06
(Iodinated Contrast- Oral
and IV Dye)
iodine Allergy rash,swelli Verified 04/25/25 12:06
ng
lisinopril Allergy numbness Verified 04/25/25 12:06
and
tingling
valsartan (From Diovan) Allergy numbness Verified 04/25/25 12:06
and
tingling
�Medication �Instructions �Recorded �Confirmed �Type
tamsulosin 0.4 mg capsule 0.4 mg PO HS Urinary issue 03/09/21 04/25/25 History
aspirin 81 mg chewable tablet 81 mg PO DAILY Blood clot 03/08/22 04/25/25 History
prevention/tx
atorvastatin 40 mg tablet 40 mg PO HS High cholesterol 03/08/22 04/25/25 History
escitalopram oxalate 10 mg tablet 10 mg PO DAILY Depression 03/08/22 04/25/25 History
metformin 1,000 mg tablet 1,000 mg PO BID Diabetes 03/08/22 04/25/25 History
clopidogrel 75 mg tablet 75 mg PO DAILY Blood Clot 01/11/23 04/25/25 History
Prevention/Tx
blood sugar diagnostic (Contour #100 ea 01/31/23 04/25/25 Rx
Next Test Strips)
lancets 21 gauge (Color Lancets) #100 ea 01/31/23 04/25/25 Rx
acetaminophen 325 mg tablet 650 mg (2 x 325 mg) PO Q6HPRN PRN 02/01/23 04/25/25 Rx
mild pain,headache,temp >101F #0
tabs
amlodipine 5 mg tablet 5 mg PO HS 04/25/25 04/25/25 History
carvedilol 3.125 mg tablet 3.125 mg PO BID 04/25/25 04/25/25 History
ezetimibe 10 mg tablet 10 mg PO DAILY 04/25/25 04/25/25 History
furosemide 40 mg tablet 40 mg PO DAILY 04/25/25 04/25/25 History
glimepiride 3 mg tablet 3 mg PO DAILY 04/25/25 04/25/25 History
potassium chloride 20 mEq 20 meq PO HS 04/25/25 04/25/25 History
tablet,extended release
Review of Systems
-
History Source: Patient
All other systems: Negative unless noted
Cardiac: Chest Pain, Diaphoresis and Other (Pain down both shoulders)
Physical Exam
Vital Signs
Temp Pulse Resp BP Pulse Ox
97.9 F 72 16 133/81 97
04/26/25 07:07 04/26/25 07:07 04/26/25 07:07 04/26/25 07:07 04/26/25 08:25
Physical examination:
General: No acute distress, AAOX3
Neck: Negative JVD
Heart: Regular, Negative S3 positive S1/S2, Negative S4, No murmur
Lungs: CTA b/l, negative wheezes/rales/rhonchi
Abd: Positive BS, NT/ND, neg rebound/rigidity/guarding
Ext: Negative cyanosis/clubbing/edema
Neuro: nonfocal
��
�
Lab Results
04/26/25 08:12
04/26/25 08:12
Troponin I < 0.012 ng/ml 04/25/25 22:05
Mld-S-Nylzicyncew Pept 1090 pg/ml 04/25/25 12:33
Impression / Plan
-
PCP: Dr. Nolan
Cardiology: Dr. TARUN Jacobson
Impression:
Exertional angina concerning for progressive CAD
Acute HFpEF, he admits to poor compliance with Lasix
CABG x 3 with PALOMO to LAD, SVG to first diagonal, SVG to OM1 January 2023
CAD
s/p MA and Xience ALEXANDRE to prox LAD and Vision BMS to RCA 12/28/08
s/p NSTEMI, peak Troponin 36, s/p 3 mm Xience prox Circumflex 05/27/19
IV contrast allergy
postoperative atrial fibrillation after CABG
HTN
DM 2
Hyperlipidemia
Hx DVT
Hx Renal calculi
Echo 09/19/17: EF 50%, mild MR
Echo 05/27/19: EF 50%
Echo 11/03/19: Normal biventricular size and function, no significant valve disease
Echo August 2024: EF 45 to 50% with hypokinesis of the inferior wall, paradoxical septal motion consistent with postoperative status, no significant valvular disease, compared to prior echo July 2024 no significant change
Plan:
We discussed the concerns regarding his exertional symptoms which are similar to the symptoms he had prior to his MA. He has classic anginal symptoms with diaphoresis pain down both arms and there is concern for progressive CAD and the possibility
of graft disease. We discussed options and he was agreeable to be considered for left cardiac catheterization to evaluate his coronary anatomy with the potential for PCI if necessary.
Cont DAPT with aspirin and Plavix
Transfer to IVU for consideration for cath
He does have some evidence of volume overload and admits to noncompliance with Lasix because he has been so busy over the last 2 weeks.
Will give additional Lasix 40 mg IV April 26, 2025
Monitor daily weights, I's and O's and creatinine
Check echo April 27, 2025 AM
Patient has IV contrast allergy and will require dye prep prior to cardiac catheterization.
Reviewed with interventional cardiology, prednisone 40 mg at 6 PM, midnight and 6 AM per IC
Continue atorvastatin and Zetia for hyperlipidemia
Discussed with primary service.
Data Reviewed
-
EKG: Tracing Personally Visualized and interpreted
Medical Tests (Nuc Med, Echo etc): Report Reviewed by me
Labs: Labs Reviewed by me
Old Records: Reviewed
[2025-04-26 11:56] LABS: Glucose - Point of Care 147 mg/dl (70-99)
[2025-04-26] MEDS: LASIX 40 MG IV (11:58)
[2025-04-26] MEDS: NOVOLOG FLEXPEN-LOW RESISTANCE SC ×2 (12:00→16:52)
--- NOTE | 2025-04-26 12:14 | PTCARENOTE ---
Report called to IVU. Pt to be transported by wheelchair.
--- NOTE | 2025-04-26 12:32 | PTCARENOTE ---
assumed car of pt as a tx from 4th floor. pt is sr w/ a first degree on the monitor, hr in the 90s, vss. pt offers no complaints at this time. pt denies cp/sob. pt educated on plan of care and pt verbalized understanding. call al within reach.
[2025-04-26 16:50] LABS: Glucose - Point of Care 140 mg/dl (70-99)
[2025-04-26 17:16] LABS: Magnesium 1.7 mg/dl (1.6-2.3)
[2025-04-26] MEDS: DELTASONE 40 MG PO ×2 (17:49→23:09)
--- NOTE | 2025-04-26 18:14 | PTCARENOTE ---
pt sr on the monitor, hr in the 80s, vss. pt in and out of bigeminy, frequent PVCs. hr up to 90s. pt tolerating. bp 101/78. notified dr. dennis, opal a mag. pt currently resting in bed comfortably. pt educated on plan of care and pt verbalized
understanding. call al within reach.
--- NOTE | 2025-04-26 21:57 | PTCARENOTE ---
Rec'd pt at change of shift. Pt AAO*3, VSS, and SR on tele monitor with PVC's. Pt denies any pain or discomfort. Pt updated on plan of care and upcoming procedure. Pt verbalizes understanding of NPO status at midnight. Pt now resting with call
al in reach. See MAR and flowchart for full pt care and assessment.
[2025-04-26] MEDS: LIPITOR 40 MG PO (23:09)
[2025-04-26 23:10] LABS: Glucose - Point of Care 231 mg/dl (70-99)
[2025-04-26] MEDS: NORVASC 5 MG PO (23:10)
[2025-04-26] MEDS: FLOMAX 0.4 MG PO (23:10)
[2025-04-27] VITALS (12 sets, daily range): BP systolic 95–152; BP diastolic 56–99; BMI 28.7
[2025-04-27] MEDS: DELTASONE 40 MG PO (05:10)
[2025-04-27 05:39] LABS: Hematocrit 40.9 % (39.0-52.0); Hemoglobin 14.0 g/dL (13.0-18.0); Mean Corp Hgb Conc. 34.2 g/dL (33.0-37.0); Mean Corpuscular Volume 87.0 fL (80.0-94.0); Nucleated Red Blood Cells % 0 % (-); Platelet Count 252 10^3/uL (130-400); Red Cell Dist. Width 12.5 % (11.5-14.5)
[2025-04-27 05:59] LABS: Blood Urea Nitrogen 43 mg/dl (9-20); Calcium 9.9 mg/dl (8.4-10.2); Carbon Dioxide 24 mmol/L (22-30); Chloride 107 mmol/L (98-107); Estimated Creatinine Clearance 79 ml/min; Glucose 242 mg/dl (70-99); Magnesium 1.8 mg/dl (1.6-2.3); Potassium 4.8 mmol/L (3.5-5.1); Sodium 139 mmol/L (135-145); eGFR > 60.00
[2025-04-27] MEDS: LOW STRENGTH ASPIRIN 81 MG PO (08:55)
[2025-04-27] MEDS: COREG 3.125 MG PO ×2 (08:55→20:13)
[2025-04-27] MEDS: ZETIA 10 MG PO (08:55)
[2025-04-27] MEDS: PLAVIX 75 MG PO (08:55)
[2025-04-27] MEDS: LEXAPRO 10 MG PO (08:55)
[2025-04-27] MEDS: HEPARIN SC (08:56)
[2025-04-27 08:58] LABS: Glucose - Point of Care 250 mg/dl (70-99)
[2025-04-27 09:18] LABS: Glycohemoglobin (HgbA1c) 7.2 % (4.0-5.9)
--- NOTE | 2025-04-27 09:21 | W.PN.HOSP.TC ---
Today's Communication/Plan
-
see A/P
Assessment / Plan
Assessment / Plan
HPI: 69 year-old male with past medical history of CAD/CABG x 5 vessel and status post stents, ischemic cardiomyopathy 45 to 50% 02/04/2023, postop A-fib after CABG 02/01/2023, HTN, DM 2, HLD, depression, BPH status post TURP 2018, renal calculi,
former smoker, history of DVT 2019 provoked due to prolonged hospital stay post urological procedure; presented with dyspnea, abdominal bloating, and diaphoresis with bilateral shoulder blade pain (similar to pain with his prior MIs).
Assessment/Plan:
# Diaphoresis and Bilateral Shoulder Blade pain (similar to symptoms of prior LA), concern for ACS
# History CAD status post stents/CABG x 5 vessel
# Ischemic cardiomyopathy EF 45-50% 02/04/2023
Shoulder pain has resolved
Plan for cardiac cath 04/27
d dimer at 0.59 which is WNL adjusted for age- no further work up is needed
# Acute on chronic HFmrEF
Was started on Lasix 40 mg daily outpatient, but had not taken for 2 weeks
s/p IV Lasix
Informed about fluid restriction
Check echo
# VIKKI ruled out
SCr today at 1.0
# History of postop A-fib after CABG 02/01/2023
Was on Amiodarone but no longer on it
# Hypertension
Continue [employer] Amlodipine 5 mg daily and Carvedilol 3.125 mg BID with hold parameters
# Type 2 Diabetes Mellitus
HbA1c 7.2%
Accu-Cheks with SSI low
Hold metformin at 1000 mg twice daily
Hold Glimepiride 3 mg daily
# Hyperlipidemia
LDL 57, Continue Ezetimibe 10 mg daily, Continue Atorvastatin 40 mg daily
# Depression
# PTSD
Lexapro 10 mg daily
# BPH
# Status post TURP [address] Aiken
# History of renal calculi status post removal/stent
Continue tamsulosin 0.4 mg daily
Monitor for any urinary retention
# Former smoker
# History of DVT provoked 2018 due to prolonged hospital stay
At that time, the DVT was treated temporarily with Lovenox
DVT Prophylaxis: Lovenox SQ
Code Status: Full code
DW at bedside
total time 51 min
Anticipated Discharge: Within 24 hours
Subjective/Interval History
-
Date of Service: April 27, 2025
Objective Data
-
Labs:
Laboratory Results
04/27/25
04:59
WBC 7.8
Hgb 14.0
Hct 40.9
Plt Count 252
Sodium 139
Potassium 4.8
Chloride 107
Carbon Dioxide 24
BUN 43 H
Creatinine 1.0
Glucose 242 H
Calcium 9.9
Vital Signs:
Vital Signs
Temp Pulse Resp BP Pulse Ox
36.7 C 74 18 124/56 95
04/27/25 06:59 04/27/25 08:55 04/27/25 06:59 04/27/25 08:55 04/27/25 06:59
I&O
04/26/25 04/27/25 04/28/25
06:59 06:59 06:59
Intake Total 120 / 120 1440 / 1440
Output Total 400 / 400
Balance -280 / -280 1440 / 1440
Review of Systems
-
History Source: Patient
All other systems: Reviewed and negative
Physical Exam
-
General: Well Developed, Well Nourished, No Apparent Distress, Comfortable and Conversant
HEENT: Normocephalic, Atraumatic and Moist Mucous Membranes; Negative Oxygen
Respiratory: Clear to Auscultation and Non Labored Respirations; Negative Accessory Resp Muscle Use
Cardiac: Regular Rhythm and S1/S2
GI: Soft, Nontender, Nondistended and Normal Bowel Sounds
Musculoskeletal: No Clubbing, No Cyanosis and No Edema
Neuro: Awake and Alert
Psych: Calm and Intact Judgement/Insight
Data Reviewed
-
Diagnostic Radiology: Report Reviewed by me
Labs: Labs Reviewed by me
--- NOTE | 2025-04-27 10:21 | CARDSERVLU ---
Echocardiogram with Lumason completed after protocol screening completed. Allergies verified.
Patent IV site: _R AC____
IV site flushed with 0.9% NaCl pre and post administration.
Diluted bolus method utilized to enhance visualization of ventricular camacho.
Total volume given: _5___ mL
Patient tolerated all procedures well without complications.
[2025-04-27] MEDS: NOVOLOG FLEXPEN-LOW RESISTANCE SC ×3 (11:51→20:05)
[2025-04-27 12:26] LABS: Glucose - Point of Care 228 mg/dl (70-99)
--- NOTE | 2025-04-27 14:17 | CM ---
Chart reviewed. Patient is independent of ADLS, works at [employer], lives with his in a 2nd floor condo, elevator access, 0 DME. Plan is for the patient to return home. CM to follow
--- NOTE | 2025-04-27 17:01 | ITS.CL.CATH ---
Administrative Support Assistant - Catheterization
Cardiac Catheterization
Procedure Report:
LEFT HEART CATHETERIZATION
Date of Procedure: April 27, 2025
Referring: Alfredo Chance D.O.
PROCEDURES:
1. Left heart catheterization, coronary angiogram.
2. Moderate sedation.
3. Selective graft angiography
INDICATION: Concern for unstable angina
ACCESS: Left radial artery, 6Fr. sheath, under US guidance.
HEMODYNAMICS : (mmHg)
AO (s/d) : 111/68
LVEDP : 10
No significant gradient across the aortic valve to suggest aortic stenosis.
CORONARY FINDINGS
Dominance: Right
Left Main Trunk (LMT): Large caliber vessel that gives rise to the LAD and LCx branches and is free of angiographic disease.
Left Anterior Descending Artery (LAD): Medium caliber vessel that gives off 2 major diagonal branches as it courses along the anterior inter-ventricular groove before wrapping around the cardiac apex. 100% proximal LAD occlusion with distal vessel
filling with a patent PALOMO graft and diagonal branch filling from a patent saphenous vein graft.
Left Circumflex Artery (LCx): Medium caliber vessel that gives off 2 major obtuse marginal (OM) branches as it courses along the atrio-ventricular (AV) groove. Mid left circumflex has diffuse 40 to 50% stenosis. OM backfills from a patent
saphenous vein graft.
Right Coronary Artery (RCA): Large caliber dominant vessel that gives rise to the posterior descending artery (RPDA) and postero-lateral ventricular (RPLV) branches distally. Mid RCA stent is widely patent. Otherwise there is mild diffuse
atherosclerotic plaque
GRAFT ANGIOGRAPHY:
1. PALOMO to LAD: Widely patent.
2. Saphenous vein graft to OM: Patent
3. Saphenous vein graft to diagonal: Patent
SEDATION: 47 minutes of procedural sedation was utilized. IV Midazolam and IV Fentanyl were administered. An independent medical practice assistant was present to assist with and help manage the patient's level of consciousness and physiologic status.
RADIATION SUMMARY: Fluoro Time (min): 12 point dose (mGy): 784 point DAP (Gy.cm2) : 31.6
Closure Device: There were no immediate intra-procedural complications. The sheath was pulled in the cardiac cath lab manager and a vascular-band applied to the left wrist for radial artery hemostasis using the patent hemostasis technique.
CONCLUSIONS
1. Significant [place] coronary artery disease.
2. PALOMO to LAD, SVG to OM and SVG to diagonal are widely patent.
3. No obstructive CAD in the [place] RCA.
4. LVEDP of 10 mmHg
RECOMMENDATIONS
1. Wean radial band per protocol. Monitor right hand perfusion and for bleeding from the radial site following removal of the vascular-band following trans-radial access.
2. Continue aggressive medical therapy and risk factor modification for secondary CAD prevention.
3. Hydrate with normal saline to mitigate the risk of contrast-induced acute kidney injury.
4. Follow-up with Dr. Jacobson
Joanne Goodwin MD, [facility], [facility]
Copy to: Tanya Jacobson MD and Alfredo Chance D.O.
[2025-04-27 18:22] LABS: Glucose - Point of Care 226 mg/dl (70-99)
--- NOTE | 2025-04-27 19:37 | PTCARENOTE ---
pt post cath left radial is cdi. 96% RA pt offers no complaints at this time. pt denies cp and sob. pt is sr on the monitor, vss. pt educated on plan of care and pt tolerated well. call al within reach.
[2025-04-27 22:29] LABS: Glucose - Point of Care 173 mg/dl (70-99)
[2025-04-27] MEDS: LIPITOR 40 MG PO (22:29)
[2025-04-27] MEDS: NORVASC 5 MG PO (22:29)
[2025-04-27] MEDS: FLOMAX 0.4 MG PO (22:29)
[2025-04-28 03:09] VITALS: BP 150/81
[2025-04-28 03:20] VITALS: BMI 28.9
[2025-04-28 04:06] LABS: Hematocrit 38.1 % (39.0-52.0); Hemoglobin 13.4 g/dL (13.0-18.0); Mean Corp Hgb Conc. 35.2 g/dL (33.0-37.0); Mean Corpuscular Volume 89.2 fL (80.0-94.0); Platelet Count 232 10^3/uL (130-400); Red Cell Dist. Width 12.6 % (11.5-14.5)
[2025-04-28 04:31] LABS: Blood Urea Nitrogen 36 mg/dl (9-20); Calcium 9.1 mg/dl (8.4-10.2); Carbon Dioxide 24 mmol/L (22-30); Chloride 107 mmol/L (98-107); Estimated Creatinine Clearance 98 ml/min; Glucose 150 mg/dl (70-99); Magnesium 1.8 mg/dl (1.6-2.3); Potassium 3.9 mmol/L (3.5-5.1); Sodium 139 mmol/L (135-145); eGFR > 60.00
--- NOTE | 2025-04-28 06:02 | PTCARENOTE ---
Rec'd pt at change of shift. PT AAO*3, VSS, and SR with PAC's on tele monitor. Pt denies any pain or discomfort. R radial site CDI. Heart failure education given and pt verbalizes understanding. Pt resting with call al in reach. See MAR and
flowchart for full pt care and assessment.
[2025-04-28 07:07] VITALS: BP 136/64
[2025-04-28] MEDS: LEXAPRO 10 MG PO (08:17)
[2025-04-28] MEDS: ZETIA 10 MG PO (08:17)
[2025-04-28] MEDS: LOW STRENGTH ASPIRIN 81 MG PO (08:17)
[2025-04-28] MEDS: PLAVIX 75 MG PO (08:17)
[2025-04-28] MEDS: COREG 3.125 MG PO (08:17)
[2025-04-28 08:19] VITALS: BP 136/94
[2025-04-28 08:42] LABS: Glucose - Point of Care 205 mg/dl (70-99)
[2025-04-28] MEDS: NOVOLOG FLEXPEN-LOW RESISTANCE 2 UNITS SC (08:53)
--- NOTE | 2025-04-28 09:00 | W.PN.HOSP.TC ---
Today's Communication/Plan
-
see A/P
Assessment / Plan
Assessment / Plan
HPI: 69 year-old male with past medical history of CAD/CABG x 5 vessel and status post stents, ischemic cardiomyopathy 45 to 50% 02/04/2023, postop A-fib after CABG 02/01/2023, HTN, DM 2, HLD, depression, BPH status post TURP 2018, renal calculi,
former smoker, history of DVT 2019 provoked due to prolonged hospital stay post urological procedure; presented with dyspnea, abdominal bloating, and diaphoresis with bilateral shoulder blade pain (similar to pain with his prior MIs).
Assessment/Plan:
# Diaphoresis and Bilateral Shoulder Blade pain (similar to symptoms of prior [place]), ruled out ACS
# History CAD status post stents/CABG x 5 vessel
# Ischemic cardiomyopathy EF 45-50% 02/04/2023
Shoulder pain has resolved
s/p cardiac cath 04/27: showed significant [place] coronary artery disease. PALOMO to LAD, SVG to OM and SVG to diagonal are widely patent. No obstructive CAD in the [place] RCA.
d dimer at 0.59 which is WNL adjusted for age- no further work up is needed
# suspect reactive leucocytosis post cath
Monitor WBC
# Acute on chronic HFmrEF
Pt was started on Lasix 40 mg daily outpatient, but had not taken for 2 weeks
s/p IV Lasix , dosage per card
Informed about fluid restriction
Follow echo report
# VIKKI ruled out
SCr today at 0.8
# History of postop A-fib after CABG 02/01/2023
Was on Amiodarone but no longer on it
# Hypertension
Continue FOLDER TIER Amlodipine 5 mg daily and Carvedilol 3.125 mg BID with hold parameters
# Type 2 Diabetes Mellitus
HbA1c 7.2%
Accu-Cheks with SSI low
Hold metformin at 1000 mg twice daily
Hold Glimepiride 3 mg daily
# Hyperlipidemia
LDL 57, Continue Ezetimibe 10 mg daily, Continue Atorvastatin 40 mg daily
# Depression
# PTSD
Lexapro 10 mg daily
# BPH
# Status post TURP [address] Aiken
# History of renal calculi status post removal/stent
Continue tamsulosin 0.4 mg daily
Monitor for any urinary retention
# Former smoker
# History of DVT provoked 2019 due to prolonged hospital stay
At that time, the DVT was treated temporarily with Lovenox
DVT Prophylaxis: Lovenox SQ
Code Status: Full code
DW Card
Anticipated Discharge: Within 24 hours
Subjective/Interval History
-
Date of Service: April 28, 2025
Objective Data
-
Labs:
Laboratory Results
04/28/25
03:16
WBC 12.6 H
Hgb 13.4
Hct 38.1 L
Plt Count 232
Sodium 139
Potassium 3.9
Chloride 107
Carbon Dioxide 24
BUN 36 H
Creatinine 0.8
Glucose 150 H
Calcium 9.1
Vital Signs:
Vital Signs
Temp Pulse Resp BP Pulse Ox
36.3 C 62 18 136/94 98
04/28/25 07:00 04/28/25 08:19 04/28/25 07:00 04/28/25 08:19 04/28/25 07:00
I&O
04/27/25 04/28/25 04/29/25
06:59 06:59 06:59
Intake Total 1440 / 1440 960 / 960
Balance 1440 / 1440 960 / 960
Review of Systems
-
History Source: Patient
All other systems: Reviewed and negative
Physical Exam
-
General: Well Developed, Well Nourished, No Apparent Distress, Comfortable and Conversant
HEENT: Normocephalic, Atraumatic and Moist Mucous Membranes; Negative Oxygen
Respiratory: Clear to Auscultation and Non Labored Respirations; Negative Accessory Resp Muscle Use
Cardiac: Regular Rhythm and S1/S2
GI: Soft, Nontender, Nondistended and Normal Bowel Sounds
Musculoskeletal: No Clubbing, No Cyanosis and No Edema
Neuro: Awake and Alert
Psych: Calm and Intact Judgement/Insight
Data Reviewed
-
Diagnostic Radiology: Report Reviewed by me
Labs: Labs Reviewed by me
--- NOTE | 2025-04-28 10:27 | W.PN.CARDCBS ---
Addendum entered and electronically signed by Madhu Hartman MD 04/28/25 11:33:
I saw and examined the patient.
The Deputy Probation Officer's note was reviewed and I agree with the note.
Comment: Briefly, 69-year-old man past medical history of multivessel CAD with prior CABG and PCI who presented for evaluation of chest discomfort.
Troponin here was undetectable x 3 however with concern for unstable angina patient underwent left heart catheterization 04/27/2025 which showed stable CAD with patent bypass grafts.
Today patient is chest pain-free and has been ambulating without cardiovascular symptoms
Continue aspirin/Plavix, Coreg, Norvasc, Lipitor/Zetia for treatment of CAD
Possible that his presentation was caused by acute CHFpEF as patient was not reliably taking his diuretic for the two weeks leading up to admission
Echocardiogram 04/27/2025 with low normal LVEF 50-55% and no high-grade valve disease
Pulmonary capillary wedge pressure was normal based on invasive hemodynamics
Appears euvolemic today
Would resume home oral Lasix dosing. Reviewed the importance of daily weights going forward.
Stable for discharge from my perspective. We will arrange outpatient follow-up.
Original Note:
Today's Communication / Plan
-
ok for DC today
OP cardiac follow up arranged
Meds upon DC:
asa 81mg daily
plavix 75mg daily
coreg 3.125mg BID
zetia 10mg daily
norvasc 5mg HS
lipitor 40mg HS
lasix 40mg daily
Impression / Plan
-
PCP: Dr. Nolan
Cardiology: Dr. TARUN Jacobson
Impression:
Exertional angina concerning for progressive CAD
Acute HFpEF, he admits to poor compliance with Lasix
CABG x 3 with PALOMO to LAD, SVG to first diagonal, SVG to OM1 January 2023
CAD
s/p CT and Xience ALEXANDRE to prox LAD and Vision BMS to RCA 12/28/08
s/p NSTEMI, peak Troponin 36, s/p 3 mm Xience prox Circumflex 05/27/19
IV contrast allergy
postoperative atrial fibrillation after CABG
HTN
DM 2
Hyperlipidemia
Hx DVT
Hx Renal calculi
Echo 09/19/17: EF 50%, mild MR
Echo 05/27/19: EF 50%
Echo 11/03/19: Normal biventricular size and function, no significant valve disease
Echo August 2024: EF 45 to 50% with hypokinesis of the inferior wall, paradoxical septal motion consistent with postoperative status, no significant valvular disease, compared to prior echo July 2024 no significant change
Plan:
- Patient presented with chest discomfort and diaphoresis. Troponins negative. Underwent cardiac catheterization 04/27 with stable CAD, patent prior bypass grafts. No intervention performed
- Continue DAPT with aspirin, Plavix. continue liptior, zetia
- Underwent diuresis for IV Lasix, as was noncompliant with his OP lasix over the last 2 weeks. now feeling well, weight trending down and wedge at time of cath 04/27 was 10. continue po lasix 40mg daily. we discussed importance of medication
compliance. he will weigh himself daily and call for weight gain as previously discussed with Dr. Jacobson
- in SR with PVCs at times in pattern of bigeminy overnight. continue coreg. K stable. replete mag
- echo 04/27 pending
- ok for DC to home today
- d/w hospitalist via TT
Progress Note - Rn Tele
Subjective
Date of Service: April 28, 2025
No complaints. Eager for discharge
Objective
Labs:
04/28/25 03:16
04/28/25 03:16
Labs
Hgb 13.4 g/dL (13.0-18.0) 04/28/25 03:16
Hct 38.1 % (39.0-52.0) L 04/28/25 03:16
Plt Count 232 10^3/uL (130-400) 04/28/25 03:16
Sodium 139 mmol/L (135-145) 04/28/25 03:16
Potassium 3.9 mmol/L (3.5-5.1) 04/28/25 03:16
BUN 36 mg/dl (9-20) H 04/28/25 03:16
Creatinine 0.8 mg/dL (0.7-1.3) 04/28/25 03:16
Glucose 150 mg/dl (70-99) H 04/28/25 03:16
Troponins
04/25/25 04/25/25 04/25/25
12:33 16:11 22:05
Troponin I < 0.012 < 0.012 < 0.012
Vital Signs and I&O:
Vital Signs
Temp Pulse Resp BP Pulse Ox
97.4 F 62 18 136/94 98
04/28/25 07:00 04/28/25 08:19 04/28/25 07:00 04/28/25 08:19 04/28/25 07:00
Vital Signs
Temp Pulse Resp BP Pulse Ox
97.4 F 62 18 136/94 98
04/28/25 07:00 04/28/25 08:19 04/28/25 07:00 04/28/25 08:19 04/28/25 07:00
Intake & Output
04/26/25 04/27/25 04/28/25 04/29/25
07:59 07:59 07:59 07:59
Intake Total 120 / 120 1919 480 / 480
Output Total 400 / 400
Balance -280 / -280 1919 480 / 480
Physical Exam
Physical Exam
GEN: No distress, awake, alert, oriented x3. Sitting in chair
HEENT: supple, anicteric, mmm, EOMI
LUNGS: CTA bilaterally, no wheezes/rales
CV: Reg, S1/S2, no murmur
ABD: soft, BS+, NT/ND
EXT: No cyanosis, clubbing, edema
NEURO: Gross non-focal
SKIN: Warm, pink, dry. No rash. L wrist site c/d/i. Sternotomy scar
[2025-04-28] MEDS: MAGNESIUM OXIDE 400 MG PO (11:13)
[2025-04-28 11:45] VITALS: BP 138/85
--- NOTE | 2025-04-28 12:20 | PTCARENOTE ---
Discharge teaching provided, patient verbalized understanding. IV and telemetry removed.
--- NOTE | 2025-04-28 13:38 | W.DCSUMMARY ---
Discharge Summary
Discharge Data
Date of Admission: 04/28/25
Date of Discharge: 04/28/25
Total time spent discharging patient (in min): 40
-
Pending Results: No
Hospital Course
Principal Diagnosis:
Diaphoresis and Bilateral Shoulder Blade pain (similar to symptoms of prior [place]), ruled out ACS
Acute on chronic HFrEF
Chronic Diagnoses:�
# History CAD status post stents/CABG x 5 vessel
# Ischemic cardiomyopathy EF 45-50% 02/04/2023
# History of postop A-fib after CABG 02/01/2023
# Hypertension
# Type 2 Diabetes Mellitus, HbA1c 7.2%
# Hyperlipidemia. LDL 57, Continue Ezetimibe 10 mg daily, Continue Atorvastatin 40 mg daily
# Depression
# PTSD, on Lexapro 10 mg daily
# BPH
# Status post TURP [address] Aiken
# History of renal calculi status post removal/stent
# Former smoker
# History of DVT provoked 2019 due to prolonged hospital stay
Consultations:�
Cardiology
Procedures:�
Cardiac cath 04/27: showed significant [place] coronary artery disease. PALOMO to LAD, SVG to OM and SVG to diagonal are widely patent. No obstructive CAD in the [place] RCA.
Clinical course:�
This is a 69 year-old male with past medical history as stated above who presented with shortness of breath, diaphoresis and bilateral shoulder pain which were felt similar to his prior myocardial infarction.
Problem 1:
# Diaphoresis and Bilateral Shoulder Blade pain (similar to symptoms of prior [place]), ruled out ACS.
He underwent cardiac cath 04/27, which was unrevealing, showed significant [place] coronary artery disease. PALOMO to LAD, SVG to OM and SVG to diagonal are widely patent. No obstructive CAD in the [place] RCA.
Acute chest syndrome was ruled out.
His chest pain and shoulder pain also resolved while in the hospital.
Problem 2:
Acute on chronic HFmrEF.
His echo from August 2024 showed an EF 45-50%.
He admitted to not taking Lasix for 2 weeks.
He was given IV Lasix while in the hospital, and was informed to continue oral Lasix 40 mg daily (previous home dose) following discharge.
As for the rest of his medical problems, they were stable during his hospital stay.
Discharge Plan
-
Patient Disposition: Home (Routine Discharge)
Discharge Diagnosis/Procedures: chest pain/shoulder blade pain, ruled out acute chest syndrome from cardiac catheterization (showed significant [place] coronary artery disease. PALOMO to LAD, SVG to OM and SVG to diagonal are widely patent. No
obstructive CAD in the [place] RCA);
Acute on chronic heart failure
Condition: Good
Diet: As tolerated, Low Fat, Low Cholesterol and Low Sodium
Activity: As tolerated
Driving Restrictions: As prior to admission
Blood Work: BMP in 1 week, result to PCP
Specialty Instructions: Weigh Daily- Call MD for wt gain/loss 3 lbs overnight/5 lbs in 1 week
Instructions: *DCA Heart Failure Instructions
Stand Alone Forms: DC Instructions- Cath/EP Lab
Referrals:
Bernard Jacobson MD [Active, Cardiology] - 04/30/25 2:00 pm
Referral Note: You have a cardiology follow-up appointment at the [place] office. Please call with questions
Andi Nolan, [Family Provider, Internal Medicine] - in less than 1 week
Prescriptions:
New
(DME) BMP
See Rx Instructions .Route .MEDSUPPLY Qty: 1 0RF
Rx Instructions:
05/01-05/08
result to PCP
# Acute on chronic heart failure
Continued
tamsulosin 0.4 MG capsule
0.4 mg PO HS
metformin 1,000 mg Tablet
1,000 mg PO BID
atorvastatin 40 MG tablet
40 mg PO HS
aspirin 81 MG tablet,chewable
81 mg PO DAILY
escitalopram oxalate 10 MG tablet
10 mg PO DAILY
clopidogrel 75 mg Tablet
75 mg PO DAILY
(DME) Contour Next Test Strips Strip
Qty: 100 0RF
Rx Instructions:
E11.65 As Directed BID
(DME) lancets [Color Lancets] 21 gauge Misc
Qty: 100 0RF
Rx Instructions:
E11.65 As Directed BID
acetaminophen 325 mg Tablet
650 mg PO Q6HPRN PRN (Reason: mild pain,headache,temp >101F ) Qty: 0 0RF
furosemide 40 mg Tablet
40 mg PO DAILY
amlodipine 5 mg Tablet
5 mg PO HS
carvedilol 3.125 mg Tablet
3.125 mg PO BID
ezetimibe 10 mg Tablet
10 mg PO DAILY
potassium chloride 20 mEq Tablet Extended Release
20 meq PO HS
glimepiride 3 mg Tablet
3 mg PO DAILY
Discharge Orders:
Discharge Patient (As Directed); Ordered 04/28/25
Ordered By: Janee Weathers
Care Plan Goals
Care Plan Goals:
Problem: Readiness for enhanced knowledge related to diagnosis and treatment plan
Goal: Understand your diagnosis and treatment plan needs, including medications if applicable.
Instructions: Know your diagnosis, underlying causes and treatment plan options, including medications if applicable. Consult with your health care team to learn about your diagnosis and treatment plan, including medications if applicable.
Discharge Date and Time
Print Language: URUGUAYAN
--- NOTE | 2025-04-29 09:29 | W.HF.CON ---
Heart Failure
- LV Function
Left ventricular function study result: LV Ejection fraction >/= 50%
Ejection Fraction Percentage: 50-55
- ARNI
Patient already on ARNI: No
Heart Failure ARNI Not Indicated: LV Ejection Fraction >/= 40%
- ACEI/ARB
Patient already on ACEI/ARB: No
Heart Failure ACEI/ARB Not Indicated: LV Ejection Fraction > 40%
- Beta Magnolia
Patient already on Evidence Based Beta Magnolia: Yes
- Mineralocorticord Receptor Antagonist
Patient already on MRA: No
Heart Failure MRA Not Indicated: LV Ejection Fraction > 40%
- SGLT-2 Inhibitor
Patient already on SGLT-2 Inhibitor: No
Heart Failure SGLT-2 Inhibitor Not Indicated: LV Ejection Fraction >40%
- NYHA CHF Classification
NYHA CHF Classification Level: Class III - Symptoms w/ min exertion, interferes w/ nml daily activity
- ACC/AHA Stage
ACC/AHA Stage: Stage C: Symptomatic Heart Failure
== END 2025-04-28 13:00 | disposition home or self-care (01) ==
LOC: SDS 16:09
PROVIDERS: Clinical Nurse Specialist Family Health; Hospitalist; Nurse Practitioner; Nurse Practitioner Gerontology; ATTENDING PHYSICIAN Internal Medicine; CONSULT PHYSICIAN Nuclear Medicine Nuclear Cardiology; EMERGENCY PHYSICIAN Emergency Medicine; FAMILY PHYSICIAN Internal Medicine
DX: I11.0 Hypertensive heart disease with heart failure (principal); I50.23 Acute on chronic systolic (congestive) heart failure; I25.118 Atherosclerotic heart disease of native coronary artery with other forms of angina pectoris; M25.512 Pain in left shoulder; M25.511 Pain in right shoulder; R06.00 Dyspnea, unspecified; R14.0 Abdominal distension (gaseous); I25.5 Ischemic cardiomyopathy; E78.00 Pure hypercholesterolemia, unspecified; N40.0 Benign prostatic hyperplasia without lower urinary tract symptoms; I48.91 Unspecified atrial fibrillation; E11.65 Type 2 diabetes mellitus with hyperglycemia; F32.A Depression, unspecified; I49.3 Ventricular premature depolarization; N17.9 Acute kidney failure, unspecified; E87.5 Hyperkalemia; Z95.5 Presence of coronary angioplasty implant and graft; Z91.148 Patient's other noncompliance with medication regimen for other reason; I25.2 Old myocardial infarction; Z91.041 Radiographic dye allergy status; Z87.891 Personal history of nicotine dependence; Z95.1 Presence of aortocoronary bypass graft; Z86.718 Personal history of other venous thrombosis and embolism; Z79.82 Long term (current) use of aspirin; Z79.84 Long term (current) use of oral hypoglycemic drugs; Z79.02 Long term (current) use of antithrombotics/antiplatelets
CPT/HCPCS: 71046; 80048; 80053; 80061; 82962; 83036; 83735; 83880; 84484; 85025; 85027; 85379; 93005; 93306; 93459; 94760; 96374; 97161; 99152; 99153; 99285; C1769; C1894; Q9950; Q9967

== ENCOUNTER → 2025-05-20 12:40 | Outpatient (REF) | payer MEDICARE, OTHER, SELFPAY ==
[2025-05-20 14:23] LABS: Blood Urea Nitrogen 22 mg/dl (9-20); Calcium 9.1 mg/dl (8.4-10.2); Carbon Dioxide 29 mmol/L (22-30); Chloride 99 mmol/L (98-107); Glucose 114 mg/dl (70-99); Potassium 4.4 mmol/L (3.5-5.1); Sodium 135 mmol/L (135-145); eGFR > 60.00
== END ==
LOC: REG 12:40
PROVIDERS: ATTENDING PHYSICIAN Internal Medicine Cardiovascular Disease; FAMILY PHYSICIAN Internal Medicine; OTHER PHYSICIAN Internal Medicine
DX: I10 Essential (primary) hypertension (principal)
CPT/HCPCS: 36415; 80048